=== PATIENT | female | born 1985 | race African-American/Black ===

== ENCOUNTER → 2019-01-10 | Outpatient (CLI) | payer OTHER, SELFPAY ==
[2019-01-10 14:29] VITALS: BMI 22.8
[2019-01-10 16:31] LABS: HIV - WCH Non-Reactive (Nonreactive)
[2019-01-10 20:00] LABS: Chlamydia Trachomatis by PCR Negative (Negative); Neisserai gonorrhoeae by PCR Negative (Negative); Probe Check PASS; Specimen Processing Control PASS
[2019-01-10 20:01] LABS: Sample Adequacy Control PASS
[2019-01-11 13:37] LABS: Rapid Plasmin Reagin (RPR) NONREACTIVE (NONREACTIVE)
[2019-01-12 11:16] LABS: HSV 1 IgG < 0.91 index (0.00-0.90); HSV 2 IgG < 0.91 index (0.00-0.90)
[2019-01-16 17:02] LABS: HPV APTIMA, High Risk Negative (Negative)
== END | disposition home or self-care (01) ==
LOC: PAVLAB 14:48
PROVIDERS: Referring Provider Nurse Practitioner Women's Health; Visit Provider Nurse Practitioner Women's Health
DX: Z11.3 Encounter for screening for infections with a predominantly sexual mode of transmission (principal); Z12.4 Encounter for screening for malignant neoplasm of cervix
CPT/HCPCS: 36415; 86592; 86695; 86696; 86703; 87491; 87591; 87624; 88175; G0145

== ENCOUNTER → 2019-05-09 16:10 | Outpatient (CLI) | payer OTHER, SELFPAY ==
[2019-05-09 14:31] VITALS: BMI 23.5
[2019-05-09 20:05] LABS: Chlamydia Trachomatis by PCR Negative (Negative); Neisserai gonorrhoeae by PCR Negative (Negative); Probe Check PASS; Sample Adequacy Control PASS; Specimen Processing Control PASS
== END ==
PROVIDERS: Referring Provider Nurse Practitioner Women's Health; Visit Provider Nurse Practitioner Women's Health
DX: N76.0 Acute vaginitis (principal); Z11.3 Encounter for screening for infections with a predominantly sexual mode of transmission; N39.0 Urinary tract infection, site not specified
CPT/HCPCS: 87070; 87086; 87088; 87205; 87491; 87591

== ENCOUNTER → 2019-10-29 | Outpatient (CLI) | payer OTHER, SELFPAY ==
[2019-10-27 13:19] VITALS: BMI 23.5
[2019-10-29 10:02] LABS: Mucous, Urine 0 SEEN /hpf (<or=2+)
[2019-10-29 10:42] LABS: Color, Urine Yellow (Yellow); Glucose, Dipstick Normal (Normal); Ketone-Dipstick Negative (Negative); Leukocyte Esterase-Dipstick 500 /ul (Negative); Nitrite-Dipstick Negative (Negative); Occult Blood-Urine 150 /ul (Negative); Protein-Dipstick 30 mg/dl (Negative); Urine Bilirubin Dipstick Negative (Negative); Urine Clarity Cloudy (Clear); Urine Urobilinogen Normal (Normal)
[2019-10-29 10:52] LABS: Bacteria 1+ /hpf (None Seen); Red Blood Cells-Urine 10-25 SEEN /hpf (0-5); White Blood Cells 25-50 SEEN /hpf (0-5)
[2019-10-29 10:53] LABS: Squamous Epithelial Cells - UA 0-5 SEEN /hpf (5-10)
== END | disposition home or self-care (01) ==
LOC: LABSPEC 09:56
PROVIDERS: Referring Provider Nurse Practitioner Family; Visit Provider Nurse Practitioner Family
DX: N30.01 Acute cystitis with hematuria (principal)
CPT/HCPCS: 81001; 87077; 87086; 87088; 87186

== ENCOUNTER 2024-06-03 19:20 | Inpatient (IN) | payer MEDICAID, SELFPAY ==
[2024-06-03 19:19] VITALS: BMI 32.9
[2024-06-03 19:40] VITALS: BP 120/78; PULSE 113; RESP 16; TEMP 36.3
[2024-06-03 20:14] LABS: Absolute Lymphocyte Count 2.73 X10^3/uL (0.83-4.51); Absolute Neutrophil Count 10.5 X10^3/uL (2.0-7.7); Basophil# 0.09 X10^3/uL; Basophil% 0.6 % (0-1); Eosinophil# 0.18 X10^3/uL; Eosinophils% 1.2 % (0-5); Hematocrit 33.3 % (37-47); Hemoglobin 10.8 g/dL (12.0-15.0); Lymphocyte # 2.73 X10^3/ul (0.83-4.51); Lymphocyte % 18.9 % (19-41); Mean Corp Hgb Conc 32.4 g/dL (32-36); Mean Corpuscular Hgb 29.2 pg (27.0-32.0); Mean Platelet Vol. 9.9 fl (6.2-12.0); Monocyte# 0.72 X10^3/uL; NRBC Flagged by Analyzer 0 % (0-5); Neutrophil # 10.45 X10^3/uL (2.7-7.7); Neutrophil % 72.6 % (47-70); Platelet Count 321 K/mm3 (150-450); RBC Distribution Width CV 14.6 % (11.6-14.6); RBC Distribution Width SD 47.4 fl (35.1-43.9); White Blood Count 14.4 K/mm3 (4.4-11.0)
[2024-06-03] MEDS: miSOPROStol 25 MCG TABLET VAGINAL (20:25)
[2024-06-03 22:17] LABS: Syphilis Antibodies Non-reactive
[2024-06-03 23:51] VITALS: RESP 16; TEMP 36.6
[2024-06-03 23:52] VITALS: BP 106/60; PULSE 80
[2024-06-04] VITALS (37 sets, daily range): BP systolic 98–136; BP diastolic 49–95; PULSE 83–110; RESP 15–18; TEMP 35.6–37; O2SAT 92–100
[2024-06-04] MEDS: miSOPROStol 50 MCG TABLET PO (01:29)
[2024-06-04] MEDS: 0.9% Saline Lock 10 ML Syringe IV ×3 (02:11→23:35)
[2024-06-04] MEDS: Lactated Ringers 1,000 ML 50 ML IV (02:12)
[2024-06-04] MEDS: LACTATED RINGERS 500 ML 999 ML IV ×2 (02:16→05:57)
[2024-06-04] MEDS: fentaNYL-bupivacaine (epidural) 100 ML BAG EPIDURAL ×3 (05:34→13:53)
[2024-06-04] MEDS: Lactated Ringers 1,000 ML 200 ML IV (05:43)
[2024-06-04 06:21] LABS: ROM Internal Control Test YES-OK TO RESULT pt. (Internal QC); ROM Patient Test POSITIVE (Negative); Record Kit Lot#, ROM+ K1972
[2024-06-04] MEDS: 0.9% Normal Saline Single 100 ML IV.SOLN. INTRA-UTER (07:40)
--- NOTE | 2024-06-04 08:44 | PCM.HP.OB ---
HPI - General General Date of Admission: 06/03/24 Date of Service: 06/03/24 Chief Complaint: induction of labor HPI Narrative CORY VELASCO, is a 38 F 4 para 0 who presents at 39 and 2/7 weeks gestation for induction of labor due to advanced maternal age. She denies any vaginal bleeding or leaking of fluid. She has had good movement Maternal Data Information Final JHONNY: 06/09/24 Gestational age: 39 2/7 PFSH PFSH Medical History no medical history Home Medications ?Medication ?Instructions ?Recorded ?Last Taken ?Type phenazopyridine 100 mg tablet 100 mg PO TID PRN pain 6 doses #6 10/27/19 Unknown Rx (Pyridium) tabs PNV#14-iron [id number]#4-[id number]-[id number] cap PO 06/03/24 06/03/24 History 27 mg iron-1 mg-300 mg-50 mg capsule aspirin 81 mg tablet,delayed 81 mg PO DAILY 06/03/24 06/03/24 History release Allergy/AdvReac Type Severity Reaction Status Date / Time Penicillins Allergy Mild unknown Verified 06/03/24 20:00 Family History Mother Multiple sclerosis Grandmother Heart disease Social History Smoking Status: Never smoker alcohol intake: current alcohol intake frequency: a few times a week Alcohol type: wine details: occasionally substance use type: does not use caffeine: Yes what type of physical activity do you participate in: aerobics frequency: 3-4 times per week seatbelt use: always do you feel safe at home: Yes additional social history: Single-Works at [employer] History 0 Elective abortions Hx Para 0 Spontaneous abortions Hx # Term Pregnancies Ectopic pregnancies Hx # Pregnancies Multiple births # of living children ROS Constitutional Constitutional: Denies fatigue, fever(s) or malaise Eyes Eyes: Denies change in vision ENT HEENT: Denies dizziness or headache(s) Cardiovascular Cardiovascular: Denies chest pain, dyspnea or lightheadedness Respiratory/Chest Respiratory/Chest: Denies cough or dyspnea Gastrointestinal Gastrointestinal: Denies change in bowel habits Genitourinary Genitourinary: Denies burning urination or genital lesions Integumentary Integumentary: Denies rash Neurologic Neurologic: Denies confusion, dizziness, headache(s), numbness or weakness Vital Signs Vital Signs Vital Signs: 06/03/24 19:40 06/03/24 19:40 06/03/24 19:40 Temperature Temperature Source Temporal Pulse Rate 113 H Respiratory Rate Blood Pressure 120/78 BP Systolic 120 BP Diastolic 78 Pulse Ox 06/03/24 19:40 06/03/24 19:40 06/03/24 23:51 Temperature 97.3 F L Temperature Source Temporal Pulse Rate Respiratory Rate 16 Blood Pressure BP Systolic BP Diastolic Pulse Ox 06/03/24 23:51 06/03/24 23:51 06/03/24 23:52 Temperature 97.8 F Temperature Source Pulse Rate Respiratory Rate 16 Blood Pressure 106/60 BP Systolic 106 BP Diastolic 60 Pulse Ox 06/03/24 23:52 06/04/24 01:19 06/04/24 01:19 Temperature Temperature Source Pulse Rate 80 87 Respiratory Rate Blood Pressure 115/71 BP Systolic 115 BP Diastolic 71 Pulse Ox 06/04/24 01:19 06/04/24 01:19 06/04/24 01:19 Temperature 97.2 F L Temperature Source Pulse Rate Respiratory Rate 16 Blood Pressure BP Systolic BP Diastolic Pulse Ox 98 06/04/24 04:37 06/04/24 04:37 06/04/24 04:37 Temperature Temperature Source Temporal Pulse Rate 90 Respiratory Rate Blood Pressure 99/61 BP Systolic 99 BP Diastolic 61 Pulse Ox 06/04/24 04:37 06/04/24 04:37 06/04/24 04:39 Temperature 98.0 F Temperature Source Pulse Rate 84 Respiratory Rate 16 Blood Pressure BP Systolic BP Diastolic Pulse Ox 06/04/24 04:39 06/04/24 05:16 06/04/24 05:16 Temperature Temperature Source Pulse Rate 99 Respiratory Rate Blood Pressure BP Systolic BP Diastolic Pulse Ox 98 100 06/04/24 05:19 06/04/24 05:19 06/04/24 05:21 Temperature Temperature Source Pulse Rate 107 H Respiratory Rate Blood Pressure 126/81 H BP Systolic 126 BP Diastolic 81 Pulse Ox 92 06/04/24 05:21 06/04/24 05:21 06/04/24 05:21 Temperature Temperature Source Pulse Rate 104 H Respiratory Rate 18 Blood Pressure BP Systolic BP Diastolic Pulse Ox 100 06/04/24 05:26 06/04/24 05:26 06/04/24 05:27 Temperature Temperature Source Pulse Rate 103 H Respiratory Rate Blood Pressure 118/77 BP Systolic 118 BP Diastolic 77 Pulse Ox 99 06/04/24 05:27 06/04/24 05:27 06/04/24 05:31 Temperature Temperature Source Pulse Rate 100 Respiratory Rate 16 Blood Pressure 106/68 BP Systolic 106 BP Diastolic 68 Pulse Ox 06/04/24 05:31 06/04/24 05:31 06/04/24 05:31 Temperature Temperature Source Pulse Rate 104 H 103 H Respiratory Rate 16 Blood Pressure BP Systolic BP Diastolic Pulse Ox 06/04/24 05:31 06/04/24 05:37 06/04/24 05:37 Temperature Temperature Source Pulse Rate 94 Respiratory Rate Blood Pressure 106/69 BP Systolic 106 BP Diastolic 69 Pulse Ox 100 06/04/24 05:37 06/04/24 05:41 06/04/24 05:41 Temperature Temperature Source Pulse Rate 106 H Respiratory Rate 16 Blood Pressure 107/82 H BP Systolic 107 BP Diastolic 82 Pulse Ox 06/04/24 05:41 06/04/24 05:47 06/04/24 05:47 Temperature Temperature Source Pulse Rate 97 Respiratory Rate 16 Blood Pressure 98/62 BP Systolic 98 BP Diastolic 62 Pulse Ox 06/04/24 05:47 06/04/24 05:51 06/04/24 05:51 Temperature Temperature Source Pulse Rate 93 Respiratory Rate 16 Blood Pressure 104/64 BP Systolic 104 BP Diastolic 64 Pulse Ox 06/04/24 05:51 06/04/24 05:57 06/04/24 05:57 Temperature Temperature Source Pulse Rate 92 Respiratory Rate 16 Blood Pressure 127/70 H BP Systolic 127 BP Diastolic 70 Pulse Ox 06/04/24 05:57 06/04/24 06:01 06/04/24 06:01 Temperature Temperature Source Pulse Rate 93 Respiratory Rate 16 Blood Pressure 111/68 BP Systolic 111 BP Diastolic 68 Pulse Ox 06/04/24 06:01 06/04/24 06:25 06/04/24 06:25 Temperature Temperature Source Pulse Rate 100 Respiratory Rate 16 Blood Pressure 101/57 L BP Systolic 101 BP Diastolic 57 Pulse Ox 06/04/24 06:30 06/04/24 06:30 06/04/24 06:32 Temperature 97.3 F L Temperature Source Temporal Pulse Rate Respiratory Rate Blood Pressure 107/56 L BP Systolic 107 BP Diastolic 56 Pulse Ox 06/04/24 06:32 06/04/24 07:02 06/04/24 07:02 Temperature Temperature Source Pulse Rate 103 H 102 H Respiratory Rate Blood Pressure 108/64 BP Systolic 108 BP Diastolic 64 Pulse Ox 06/04/24 07:33 06/04/24 07:33 06/04/24 07:33 Temperature Temperature Source Tympanic Pulse Rate 100 Respiratory Rate Blood Pressure 113/66 BP Systolic 113 BP Diastolic 66 Pulse Ox 06/04/24 07:33 Temperature 98.6 F Temperature Source Pulse Rate Respiratory Rate Blood Pressure BP Systolic BP Diastolic Pulse Ox Weight Weight: 87 kg Body Mass Index (BMI) 32.9 Physical Exam Const alert and no apparent distress General Appearance: cooperative HEENT normocephalic Resp normal respiratory effort Cardio regular rate GI soft to palpation GI Narrative: gravid, nontender, appropriate for gestational age Extremity no calf tenderness General Extremity: edema Skin no wounds Rashes: No rashes noted Psych activity/motor behavior normal Labs Labs Labs: Blood Type O POSITIVE Antibody Screen NEGATIVE Hct 33.3 % (37-47) L Hgb 10.8 g/dL (12.0-15.0) L Syphilis Total Ab Non-reactive HIV 1&2 Antibody Non-Reactive (Nonreactive) Assessment & Plan (1) 39 weeks gestation of : PLAN: Risk benefits and alternatives to induction labor were discussed with the patient, she desired to proceed. Received Cytotec overnight. Nicole catheter was placed this morning over stylette in usual sterile fashion and balloon inflated to 30 cc. Estimated weight is less than 4500 g clinically and pelvis clinically adequate to expect vaginal delivery. May have routine pain control measures as needed during labor. (2) High-risk in third trimester: (3) Advanced maternal age (AMA) in : (4) Nulligravida:
[2024-06-04] MEDS: Oxytocin 15 Units/NS 250ml 15 UNITS/250 ML IV.SOLN 2 UNITS IV (08:53)
--- NOTE | 2024-06-04 09:59 | CASEMGMT ---
Social Work Assessment Labor and Delivery Unit Patient Address: [address] [place] [address]. [place] [address] Phone number: [phone] Date of Referral: 06/04/24 Time of Referral:? 829 Referred By: Jasmyn Quinones Date of Intervention: ?06/04/24? Time of Intervention:? 899 Reason for Referral:? resources Sw completed chart review and acknowledges social work consult due to concerns for need for resources. Sw presented to bedside and introduced self to mother of baby (MOB- Bobbi). Sw completed assessment, and chcf through father of baby (FOB- Alexx Lira) presented to bedside and participated in assessment. History obtained from: medical records, MOB and FOB Household composition: Currently residing in the family home is MOB, FOSrikanth and their dog. Meno baby to be added to household when ready for dischareg. Patient's parent/guardian status:? ?MARIANN states that she and MAITE have been together for 4 years, 1. They met online dating. MARIANN denies any domestic violence or intimate partner violence. This is first baby for both parents. Medical History: ?MARIANN is 38 year old female who is 4, para 0- now 1 following labor and delivery of . MARIANN received routine care during with [facility]. MARIANN presented to hospital for scheduled induction of labor due to advanced maternal age. MARIANN still in labor while meeting with sandy, so stats not known at this time. MARIANN is anticipating of baby felton who she plans on naming Argelia Granger. MARIANN is planning on breast feeding, and reports building construction ironworker will be Dr. Leonardo. Educational Status:? Both parents graduated from high school and obtained some college education. 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 NO concerns with reading, learning or comprehension. Financial Status: Both parents are employed outside of the home. They own and manage the [employer], and MARIANN works in Real Estate. Infant Supplies: Parents have obtained all necessary baby supplies, including: car seat, safe sleep space, clothes, diapers and wipes. Childcare/Caregiver(s):? MOB and FOB will be able to flex their scheduled so that they are both able to provide childcare. Transportation:?? Both parents have their drivers license and reliable means of transportation, no barriers. Programs/Agencies Involved: MARIANN is connected to insurance through [employer] ([employer]) and [facility]. ??? Children Services/Legal Issues:??? No history of children services involvement. No issues or concerns warranting referral to be made at this time. Behavioral Health Issues: ??Mental Health History:?Parents deny mental health diagnoses. ?? Substance Use History: MOB with history of THC use, prior to . MOB denies any substance use during . FOB presented to bedside smelling of THC. Sw pointed out to MOB and FOB that they should not smoke substances in the home or around . Sw educated FOB to wash his face, hands and change his clothes if he does chose to smoke. FOB states that he does smoke outside of the home, and does not have intentions of smoking around baby, or having baby be in his primary care while smoking. Sw also educated MOB on the risks of smoking THC while breast feeding. MOB states that she does not smoke and has no intentions of smoking following delivery of baby. ? Family History:??Parents deny family history of substance use, addiction or significant mental health diagnoses. ??? Drug Screens: No drug screens observed in chart review. Family/Social Stressors:? Parents deny any issues, concerns or stressors. MOB reports that she does not have any food insecurities, stating that they never run out of food before she has money to get more. Support Systems: MOB states that both sides of the family are extremely supportive. Depression/Shaken Baby/Safe Sleeping: Sw educated MOB and FOB on signs and symptoms of baby blues and mood and anxiety disorders to be mindful of during this period. MOB states that she is aware of the terms and mindful of what to be on the lookout for. MOB states that she has sisters who have had babies, and she helped them during their period. MOB states that FOB would be able to recognize if she were struggling with her mental health and would know how to help and support her. Sw educated parents on shaken baby prevention and importance of ABCs of sleep. Parents express understanding. ASSESSMENT:? MOB admitted and in labor to delivery first baby. MOB and FOB both present and engaging throughout completion of psychosocial assessment. MOB states that she is familiar with baby blues and mood and anxiety disorders to be mindful of during this period. MOB does not have a mental health history and denies any social determinants of health. MOB and FOB have been together for four years, this is their first baby together. Parents have natural supports in place and have obtained all necessary baby items. MOB denies substance use, however FOB disclosed that he does smoke THC. Education provided regarding not smoking in the home or around baby, or being a solo caregiver to baby while using THC. FOB expressed understanding. Parents were engaging and talkative during assessment. MOB and FOB obtained eye contact and were observed to be positive supports to one another. PLAN:?? No other services requested or indicated. MOB and baby to be discharged when medically ready. Parents were provided literature regarding: signs and symptoms of baby blues and mood and anxiety disorders, Help Me Grow, shaken baby prevention, ABCs of safe sleep and a list of county resources that are available for them should any needs present themselves. Poornima De Jesus, PHARMACIST CRITICAL CARE, ENGINEER AUTOMATED EQUIPMENT
[2024-06-04] MEDS: Lactated Ringers 1,000 ML 999 ML IV (11:22)
[2024-06-04] MEDS: DiphenhydrAMINE 50 MG/ML Syringe IV (12:50)
[2024-06-04] MEDS: Acetaminophen 500 MG Tablet PO (14:44)
[2024-06-04] MEDS: Sodium Citrate/Citric Acid 30 ML UDC PO (14:45)
--- NOTE | 2024-06-04 14:46 | PCM.PN.BLA ---
Progress Note i was notified by CYNDEE Quinones of fhr decelerations-left office and patient pt seen at bedside- discussed primary cs due to repetitive late decelerations with mod variability- cat 2 FHR.- remote from delivery. OR team notified. Pt given opportunity to ask questions.
[2024-06-04] MEDS: Cefazolin 2 GM in 0.9% Normal Saline (100mL Bag) 100 ML IV (14:55)
[2024-06-04] MEDS: Azithromycin 500 MG in 0.9% Normal Saline (250mL Bag) 250 ML 250 MG IV (15:10)
--- NOTE | 2024-06-04 15:47 | OP.PCM_ITS ---
Operative Report (OB) Cecarean Details Procedure Type: low transverse Date of Procedure: 06/04/24 Procedure Start Time: 15:04 Procedure Stop Time: 15:43 Time of Delivery: 15:06 Pre-Operative Diagnosis: Distress (category 2 fhr - remote from delivery , 39 weeks gestation, AMA) Post-Operative Diagnosis: Same as Pre-operative diagnosis (Live female ) Classification: YUNIOR Type of Anesthesia: Epidural Antibiotic Given: Ancef 2 grams IV x1 and Zithromax 500 mg/5 mL X1 Drain: Nicole to straight drain Estimated Blood Loss: 600 Fluids Replaced: 1000cc Findings Description of surgery: After informed consent was obtained the patient was taken the operating room. She was then placed in the supine position. She was prepped and draped in the normal sterile fashion. Epidural Anesthesia was found to be adequate. At this time a Pfannenstiel skin incision was made with a knife was carried down to the underlying layer of the fascia. The fascial incision was then extended laterally using gentle traction. Rectus muscles were then in the midline bluntly and peritoneum was entered bluntly. Gentle opposing traction was placed. At this time the vesicouterine peritoneum was identified. Scalpel was used to make a uterine incision in a low transverse fashion. The uterus was then entered bluntly gentle opposing traction was placed to extend this incision. Membranes were ruptured clear. 's head was brought to the uterine incision was delivered atraumatically. Infant was vigorous at delivery and delayed cord clamping performed. delayed cord clamping performed. Cord was clamped and cut infant was handed to the waiting nursery team. The Placenta was removed from the uterus. The uterus was then removed from the abdominal cavity. The uterus was cleared of all clots and debris using a lap. At this time the uterine incision was reapproximated using #1 Vicryl in a running locked fashion. there was a small sinus/hematoma formation with bleeding on the anterior surface of the uterus- multiple sutures placed- hemoblast placed and pressure held for 2min- bleeding controlled and hemostasis was achieved. Hem ostasis was appreciated. Posterior cul-de-sac was then cleared of all clots and debris. Uterus was placed back in the abdominal cavity. Gutters were cleared of all clots and debris. Uterine incision was reevaluated and noted to be of excellent hemostasis. Hemoblast then placed on uterine incision. At this time the peritoneum was grasped with Kellys reapproximated using #2 Vicryl suture in a running fashion. Fascia was then reapproximated using #1 Vicryl in a running fashion. Subcu layer was irrigated with NS,remaining hemoblast placed and layer was reapproximated with #2 0 plain gut suture in an interrupted fashion. Subcu layer was closed using 4-0 Monocryl in a subcu fashion. Dry sterile dressing was applied. Instrument lap needle count correct ?2. Anticipated normal postoperative course. Surgical findings: normal tubes and ovaries Presentation: Vertex Amniotic Membrane Rupture Type: Spontaneous Amniotic Fluid Description: Clear Placental Delivery Description: Expressed Placenta Disposition: [facility] Specimen collected: No Cord Vessel Description: 3 Vessels Cord Entanglement: None Cord Gases: ABG and VBG A gender: Female (1 minute): 9 (5 minute): 9 Delayed Cord Clamping: Yes Loan Workout Officer community representative: Yes Spray Drier Operator Helper: Alise Segal Tasks completed by list of first job ideas: Opening & closing, Dissecting tissue and Retracting Additional assistant department manager?: No Complications Complications: No Admit VTE Documentation VTE Present on Admission: Yes VTE Mechan Device Prophylaxis: SCD's VTE Pharm Prophylaxis Ordered: Yes
[2024-06-04] MEDS: Oxytocin 15 Units/NS 250ml 15 UNITS/250 ML IV.SOLN 83 UNITS IV (16:09)
[2024-06-04] MEDS: Ketorolac 30 MG/ML Syringe IV ×2 (17:39→23:35)
[2024-06-04] MEDS: Acetaminophen 500 MG Tablet 1000 MG PO (20:35)
--- NOTE | 2024-06-04 21:46 | NURSING ---
this RN provided education on importance of orally hydrating. pt had already had an entire tumbler of PO fluids. pt states she does not want IV fluids infusing at this time. urine clear and yellow. diuresing well at this time. no further needs noted. no LR infusing at this time.
--- NOTE | 2024-06-04 22:38 | NURSING ---
this RN removed epidural catheter. blue tip intact.
--- NOTE | 2024-06-05 00:17 | NURSING ---
200 drained from armas cath prior to removal.
[2024-06-05 01:40] VITALS: PULSE 89; RESP 16; O2SAT 99
[2024-06-05 02:59] VITALS: RESP 16
[2024-06-05 03:34] VITALS: BP 93/61; PULSE 72; RESP 16; TEMP 36.2; O2SAT 99
[2024-06-05] MEDS: Acetaminophen 500 MG Tablet 1000 MG PO ×3 (03:38→15:06)
[2024-06-05] MEDS: Enoxaparin 40 MG/0.4 ML Syringe SC (03:38)
[2024-06-05] MEDS: 0.9% Saline Lock 10 ML Syringe IV ×2 (05:25→11:38)
[2024-06-05] MEDS: Ketorolac 30 MG/ML Syringe IV ×2 (05:25→11:38)
[2024-06-05 06:01] LABS: Hematocrit 29.7 % (37-47); Hemoglobin 9.7 g/dL (12.0-15.0); Mean Corp Hgb Conc 32.7 g/dL (32-36); Mean Corpuscular Hgb 29.8 pg (27.0-32.0); Mean Corpuscular Volume 91.1 fL (81-99); Platelet Count 295 K/mm3 (150-450); RBC Distribution Width CV 14.3 % (11.6-14.6); RBC Distribution Width SD 47.8 fl (35.1-43.9); Red Blood Count 3.26 M/mm3 (4.2-5.4); White Blood Count 26.5 K/mm3 (4.4-11.0)
--- NOTE | 2024-06-05 08:22 | DS.PCM_ITS ---
Providers Date of Admission: 06/03/24 Primary Care Physician: ELIO FATIMA Reason For Visit: INDUCTION Diagnosis Discharge Diagnosis (1) Delivery by section: Status: Acute (2) Care and examination of lactating mother: Status: Acute Code(s): Z39.1 - Encounter for care and examination of lactating mother (3) Post-operative pain: Status: Acute Code(s): G89.18 - Other acute postprocedural pain Medications at Discharge Home Medications PNV#14-iron fum-FA#6-mat-[id number] 27 mg iron-1 mg-300 mg-50 mg capsule cap PO 06/03/24 acetaminophen 500 mg tablet 1,000 mg (2 x 500 mg) PO Q6H #0 tabs 06/05/24 ibuprofen 600 mg tablet 600 mg PO Q6H #0 tabs 06/05/24 sennosides 8.6 mg-docusate sodium 50 mg tablet (Stimulant Laxative Plus) 1 - 2 tab PO DAILY #0 tabs 06/05/24 Hospital Course Operations section Summary of Care Provided Minutes Spent on Discharge: 15 Hospital Course: Patient had section. Hospital course was uneventful. Physical Exam Narrative Patient seen at bedside. Denies pain. Ambulating and voiding without difficulty. Lochia decreased. Desires discharge home today. Const alert and oriented x3 General Appearance: Negative for in distress HEENT normocephalic Eyes General Eye: normal appearance of both eyes Neck General: normal visual inspection Chest Chest: symmetrical chest wall rise Resp normal respiratory effort and normal air movement Effort and Inspection: symmetric chest movement; Negative for tachypneic Auscultation: clear to auscultation bilaterally Cardio regular rate and regular rhythm Peripheral Pulses: pulses 2+ throughout GI normal to inspection, nondistended, normoactive bowel sounds Narrative: Ice to perineum OB / External & Speculum: vaginal bleeding and other Lochia decreasing Uterus Palpation: uterus fundus firm (Below U) Extremity normal to inspection, full ROM and normal capillary refill Skin no rashes or lesions noted Neuro oriented x3, CN's II-XII intact bilaterally and gait normal Psych mental status grossly normal, thought process normal and activity/motor behavior normal Weight / BMI Weight Weight: 191 lb 12.835 oz Body Mass Index (BMI) 32.9 ABG / Lab / Microbiology Data 06/05/24 05:30 Laboratory: Laboratory Results - last 24 hr 06/05/24 05:30: WBC 26.5 H, RBC 3.26 L, Hgb 9.7 L, Hct 29.7 L, MCV 91.1, MCH 29.8, MCHC 32.7, RDW Std Deviation 47.8 H, RDW Coeff of Toña 14.3, Plt Count 295, MPV 10.0 D/C Instructions Discharge Diet: No restrictions Discharge Activity: May Not Drive (2 weeks) and May Shower May resume sexual activity in: 6-8 weeks Weight Bearing Status: Weight bearing as tolerated Call your doctor if your incision/area has: Continuous Slow Oozing, Sudden Increased Bleeding, Increased Pain/ Swelling, Increased Redness and Foul Smelling Discharge Call your doctor if you observe: Fever of 101 or Higher, Inability to urinate, Using more than 1 pad per hour, Shortness of breath, Dizziness, Chest pain, Calf discomfort and Uncontrolled pain Suture Line Care: Avoid Pulling/Pushing Remove Dressing in: 5 days Cleanse incision/area with: Keep Dressing Clean & Dry DC O2, CPAP, BIPAP Needs Home O2 Discharge instructions: No DC home with Oxygen: No Please Follow Up With: [facility] Adam LOWE When: 1 week for removal of dressing and incision check Meaningful Use Info Meaningful Use Meaningful Use Diagnoses (Choose all that apply): None applicable Ischemic Stroke Statin Dosing Therapy Reference: STATIN DOSE THERAPY REFERENCE: * Patients > 75 years receive moderate or high dose statin therapy. * Patients 75 years or YOUNGER should receive HIGH intensity statin dose unless contraindicated. You will be required to document reason for non-treatment if statin daily dose does not meet guidelines. HIGH DOSE STATIN THERAPY DAILY Atorvastatin > than or = to 40 mg Rosuvastatin > than or = to 20 mg Amlodipine + Atorvastatin > than or = to 2.5/40 mg Ezetimibe + Simvastatin 10/80 mg Simvastatin 80mg Discharge Plan Admission Admit Date/Time: 06/03/24 19:20 Primary Reason for Your Visit: Labor and Delivery Attending Provider: Shelly Reyna Primary Care Provider: ELIO FATIMA Discharge Orders/Prescriptions Prescriptions: New sennosides-docusate sodium [Stimulant Laxative Plus] 8.6-50 mg Tablet 1 - 2 tab PO DAILY Qty: 0 0RF acetaminophen 500 mg Tablet 1,000 mg PO Q6H Qty: 0 0RF ibuprofen 600 mg Tablet 600 mg PO Q6H Qty: 0 0RF Continued PNV #14-iron-FA#[id number] 27 mg iron-1 mg -300 mg-50 mg capsule PO Discontinued phenazopyridine [Pyridium] 100 mg tablet 100 mg PO TID PRN (Reason: pain) 0 Days Qty: 6 0RF aspirin 81 mg tablet,delayed release (DR/EC) 81 mg PO DAILY Referrals / Follow Up: ELIO FATIMA [Other] Disposition Disposition (needs filled in before D/C Order can be placed): Home, Self Care
[2024-06-05 08:30] VITALS: BP 84/58; PULSE 85; RESP 16; TEMP 36.1; O2SAT 100
[2024-06-05] MEDS: Senna/Docusate Sodium 1 Tablet PO (08:34)
--- NOTE | 2024-06-05 09:07 | NURSING ---
BP 85/58; pt encouraged to drink more fluids and call for help getting up if she notes lightheadedness.
[2024-06-05 12:44] VITALS: BP 99/64; PULSE 93; RESP 16; TEMP 36.1
[2024-06-05] MEDS: Naproxen 500 MG Tablet PO (15:06)
== END 2024-06-05 17:45 | disposition home or self-care (01) | DRG 850 ==
PROVIDERS: Obstetrics & Gynecology; Admitting Provider Obstetrics & Gynecology; Referring Provider Obstetrics & Gynecology; Visit Provider Obstetrics & Gynecology
DX: Z79.82 Long term (current) use of aspirin (principal); O76 Abnormality in fetal heart rate and rhythm complicating labor and delivery; O90.2 Hematoma of obstetric wound; Z37.0 Single live birth; Z3A.39 39 weeks gestation of pregnancy
CPT/HCPCS: 59025; 59050; 84112; 85025; 85027; 86780; 86850; 86900; 86901; 99221; J7050; J7120; A4216; G0378